=== PATIENT | female | born 1985 | race African-American/Black ===

== ENCOUNTER 2018-12-03 10:23 | Emergency (ER) | payer MEDICARE ==
[2018-12-03 10:42] VITALS: Wt 127.3 kg
[2018-12-03 12:11] LABS: BASOPHILS 0.1 % (0-2); EOSINOPHILS 1.4 % (0-7); HEMATOCRIT 39.6 % (36.0-48.0); HEMOGLOBIN 13.7 g/dL (12-16); IMMATURE GRANULOCYTES 0.2 % (0-5); MCH 28.9 pg (26.0-34.0); MCHC 34.6 g/dL (31.0-37.0); MCV 83.5 fL (80.0-100.0); MEAN PLATELET VOLUME 10.1 fL (7.4-10.4); MONOCYTES 5.8 % (2-11); NEUTROPHILS 54.5 % (40-80); PLATELET COUNT 281 10x3/uL (130-400); RBC 4.74 10x6/uL (4.00-5.40); RDW 14.2 % (11.5-14.5)
[2018-12-03 12:28] LABS: ALBUMIN 3.3 g/dL (3.4-5.0); ANION GAP 7.3 mmol/L (8-16); BILIRUBIN - TOTAL 0.16 mg/dL (0.2-1.3); CALCIUM 8.7 mg/dL (8.5-10.1); CARBON DIOXIDE 34.4 mmol/L (21.0-32.0); POTASSIUM - SERUM 3.7 mmol/L (3.5-5.1); PROTEIN - SERUM 8.1 g/dL (6.4-8.2)
[2018-12-03 13:02] LABS: AMYLASE - SERUM 56 U/L (25-115); LIPASE 86 U/L (73-393)
[2018-12-03] MEDS ORDERED: IBUPROFEN800 MG PO (14:01)
[2018-12-03] MEDS ORDERED: ACETAMINOPHEN500 M1 PO (14:01)
[2018-12-03] MEDS ORDERED: CYCLOBENZAPRINE10 MG PO (14:01)
[2018-12-03 14:20] VITALS: BP 153/105
== END 2018-12-03 14:20 | disposition home or self-care (01) ==
LOC: D.ER 10:23
PROVIDERS: Family Medicine
DX: R10.9 Unspecified abdominal pain (principal); R74.8 Abnormal levels of other serum enzymes; S39.011A Strain of muscle, fascia and tendon of abdomen, initial encounter; X58.XXXA Exposure to other specified factors, initial encounter; Y93.89 Activity, other specified; Y92.89 Other specified places as the place of occurrence of the external cause